=== PATIENT | male | born 2000 | race Caucasian/White ===

== ENCOUNTER 2022-02-20 13:52 | Emergency (ER) | payer OTHER ==
[2022-02-20] MEDS ORDERED: Proparacaine 0.5% Ophth Soln 15 ML Bottle EYELF ONE (15:16)
[2022-02-20] MEDS ORDERED: Fluorescein 1 MG Ophth Strip EYELF ONE (15:16)
[2022-02-20] MEDS ORDERED: Erythromycin Base 0.5% Ophth Oint 1 GM Tube EYELF ONE (15:39)
== END 2022-02-20 17:00 | disposition home or self-care (01) ==
LOC: JD.ED 13:52
DX: S05.02XA Injury of conjunctiva and corneal abrasion without foreign body, left eye, initial encounter (principal); W22.8XXA Striking against or struck by other objects, initial encounter
CPT/HCPCS: 99283; A9270